=== PATIENT | male | born 1990 | race African-American/Black ===

== ENCOUNTER 2022-08-15 22:57 | Emergency (ER) | payer OTHER ==
[~2022-08-15] VITALS: Ht 170.2 cm; Wt 82.0 kg
[2022-08-16] MEDS ORDERED: ALBUTEROL (0.083%) 2.5MG/3ML NEB HHN STA (00:07)
[2022-08-16] MEDS ORDERED: MAGNESIUM 2 G PREMIX 50 ML IV STA (00:07)
[2022-08-16] MEDS ORDERED: IPRATROPIUM BROMIDE (0.02%) 0.5MG/2.5ML NEB HHN STA (00:07)
[2022-08-16] MEDS ORDERED: METHYLPREDNISOLONE SOD SUCC 125 MG/2 ML VIAL IV STA (00:07)
[2022-08-16 02:00] VITALS: BP 151/63
[2022-08-16] MEDS ORDERED: PRED10TA MT (02:40)
== END 2022-08-16 02:52 | disposition home or self-care (01) ==
LOC: ER 22:57
DX: J45.909 Unspecified asthma, uncomplicated (principal); R06.02 Shortness of breath; R05.9 Cough, unspecified; I10 Essential (primary) hypertension
CPT/HCPCS: 93005; 94644; 96365; 96375; 99285; J2930; J3475; Z7610